=== PATIENT | female | born 1970 | race Caucasian/White ===

== ENCOUNTER 2019-05-18 08:00 | Outpatient (RCR) | payer OTHER, SELFPAY ==
--- NOTE | 2019-04-11 09:03 | HP.PTEVAL_ITS ---
Patient's Visit Information SCOTTY DEVI is a 48 year old F referred to Physical Therapy by TOM GALLARDO with a diagnosis of PLANTARFASCITIS LEFT FOOT S/P FASECTOMY. Date of Evaluation: 04/11/19 Physical Therapist: Israel Sprague, PT, Cert MDT, [facility] - Visit Plan Frequency: 2x /Week Duration: 4 Weeks Plan: PT INTERVENTIONS TO INCLUDED MOALITIES -US/CP,STRECTHING PLANTARFASCIA/GASTROSOLUES, MANUAL THERAPY PLANTARFASCIA/CALF-STM/HAWK.STICK ,STRENGTHENING EX'S MICKY ANKLE -ARCH - Subjective Findings: This 48 y/o female presents to physical therapy with plantar fascitis left foot s/p fasectomy. Patient has had left plantarfscaitis 3 years ago tried PT helped . But then last year February 2018 symptoms flared up symptoms became worse . Patient tried PT didn'd help. Thus underwent s/p left fascetomy on 12/22/18. P atient was in boot for 6weeks . Then smptoms did not get better thus DR recommended PT. In past ,patient has custom ortthotics ,shoe wear ,stretching,night splint. In past ,patient has tried injections.Symptoms worse with walking standing,walking affects job demnads and housework tasks. Symptoms described as burning tingling sensation. Location of symptoms located plantarfascia and calcaneusd. Patient condition affects QOL and function. SOCAIL: . VOCATION: Works at [employer] - Pain Left Foot Pain Intensity (Out of 10): 7 Pain Intensity Range: 10 - Objective POSTURE: frontal plane mechanics pes planus. GAIT: pes planus calaneal valgus ankle antalgic. NEURO: intact. AROM: dorsiflexion 10 degrees,plantarflexion 65 degrees,inversion 35 degres,eversion 10 degrees. MMT: DF4/5,EVERSION/INVERSION 4/5,G-S 4-/5. FLEXABLITY: G-S WFL - Goals Goal 1:: Independant with HEP Goal Time Frame: 4-6 Weeks Goal 2:: Ambulate with normal cindy Goal Time Frame: 4-6 Weeks Goal 3:: Decrease plantarfasciapain by 50% or greater to improve function with gait. Goal Time Frame: 4-6 Weeks Goal 4:: Patient to improve job demands and housework tasks with min limioations Goal Time Frame: 4-6 Weeks Goal 5:: Patient to improve LFES score by 5-10 points or greater to improve gait Goal Time Frame: 4-6 Weeks - Rehabilitation Potential Physical Therapy Diagnosis: This patient underwent s/p fasectomy on 12/22/18 with symptoms of pain/burning,tightness in plantarfascia impairs gait and standing affcts job demands /housework tasks. Rehabilitation Potential: Good - Anticipated Interventions Patient/Client Instruction: Educate patient on: Condition, Plan of Care For the Purpose of:: To decrease pain, To increase ROM, To improve muscle performance and motor function, To improve ability to perform ADL's, To increase tolerance to activity/condition/position, To improve performance and independence with ADL's, To improve ability of physical actions for home/community/work/leisure, To improve gait and locomotor functions, To improve health of tissue, To decrease soft tissue restriction, To increase flexi bility/ROM, To reduce risk of recurrence, To prevent re-injury, To improve ability to perform tasks related to life management Therapeutic Exercise to Include: Strength training, Flexibilty training, Active ROM Comment: PLANTARFASCIA/G-S For the Purpose of:: To decrease pain, To increase ROM, To improve nutrient delivery to tissue, To increase oxygenation perfusion, To improve muscle performance and motor function, To improve ability to perform ADL's, To improve performance and independence with ADL's, To improve ability of physical actions for home/community/work/leisure, To improve health of tissue, To decrease soft tissue restriction, To improve ability to perform tasks related to life management Manual Therapy Techniques to Include: Mobilization, Soft tissue mobilization Comment: PLANTAR FASCIA For the Purpose of:: To decrease pain, To increase ROM, To improve nutrient delivery to tissue, To increase oxygenation perfusion, To improve health of tissue, To decrease soft tissue restriction, To increase flexibility/ROM TENS: Yes IF ES: Yes Cryotherapy (ice pack, ice massage): Yes Thermo therapy (hot pack): Yes Ultrasound (thermal/non thermal): Yes For the Purpose of:: To decrease pain, To decrease swelling/inflammation, To improve nutrient delivery to tissue, To improve health of tissue, To decrease soft tissue restriction Thank you for the opportunity to evaluate your patient. For Medicare and Medicare HMO plans, please review the plan of care and approve it. It will need to be FAXED BACK to us at [phone] for Medicare purposes. For Medicare only, by signing this I certify the plan of care. Please let me know if there are questions or concerns regarding this plan of care. Physician Signature: Date:
--- NOTE | 2019-05-18 11:30 | HP.PTDCSUM ---
HP - PT D/C Summary It has been my pleasure to treat SCOTTY DEVI under orders from TOM GALLARDO, for the diagnosis of PLANTARFASCITIS LEFT FOOT S/P FASECTOMY for a total of 8 visit(s). Discharge Date: 05/18/19 Please see the following information for a summary of their discharge status. - Subjective Subjective: Patient was on vacation foot was feeling better. But with RTW standing not much better. Patient stated pain is better in morning but worse as day goes on . - Pain Left Foot Pain Intensity (Out of 10): 3 - Overall Improvement % Improvement: 50 - Objective Objective/Function: POSTURE: pes planus. AROM: DF 5 degrees,PF 65 degrees,IN 35 degrees,eversion 5 degrees. MMT: ankle DF/PF/EV/IN 4/5. GAIT: NORMAL NEGRA. PALPATION: TENDER INSERTION OF PLANTERFASCIA - Goals Goal 1:: Independant with HEP Goal Progress: Goal Met Goal 2:: Ambulate with normal negra Goal Progress: Progressing Goal 3:: Decrease plantarfasciapain by 50% or greater to improve function with gait. Goal Progress: Progressing Goal 4:: Patient to improve job demands and housework tasks with min limioations Goal Progress: Progressing Goal 5:: Patient to improve LFES score by 5-10 points or greater to improve gait Goal Progress: Progressing - Plan Plan: D/C -RTD - D/C Information Discharge Comments: RTD If there are questions or concerns regarding this patient's physical therapy, please feel free to call me at [phone]. Thank you for the referral of this patient. Sincerely, Israel Sprague, PT, Cert MDT, [facility]
== END 2019-05-18 19:00 | disposition home or self-care (01) ==
LOC: PT 08:00
PROVIDERS: Family Provider Family Medicine; PCP Family Medicine
DX: M72.2 Plantar fascial fibromatosis (principal); Z98.890 Other specified postprocedural states
CPT/HCPCS: 97035; 97110; 97140; 97161

== ENCOUNTER → 2021-05-15 10:50 | Outpatient (CLI) | payer OTHER, SELFPAY ==
--- NOTE | 2021-05-15 10:56 | VDLE_ITS ---
Reason For Study: VENOUS INSUFFICIENCY RIGHT LEFT CFV is compressible, spontaneous, phasic, CFV is compressible, spontaneous, phasic, competent and demonstrates normal competent, and demonstrates normal augmentation. augmentation. FV is compressible, spontaneous, phasic, FV is compressible, spontaneous, phasic, competent and demonstrates normal competent and demonstrates normal augmentation. augmentation. POP V is compressible, spontaneous, phasic, POP V is compressible, spontaneous, phasic, competent and demonstrates normal competent and demonstrates normal augmentation. augmentation. T/P Trunk is compressible. T/P Trunk is compressible. PTV is compressible. PTV is compressible. RT PerV is compressible. LT PerV is compressible. SFJ is INCOMPETENT and measures .59 X .65 cm. SFJ is competent and measures .63 x .71 cm. GSV above knee is INCOMPETENT for greater GSV at knee measures .23 x .25 cm. than 0.5 seconds. GSV above knee is INCOMPETENT for greater GSV below knee is competent. than 0.5 seconds. RT GSV is labeled Left GSV on images. GSV below knee is INCOMPETENT for greater SSV at junction is competent and measures .24 than 0.5 seconds. x .27 cm. Left GSV is labeled as RT on images. Procedure SSV at junction is competent and measures .24 This is a venous duplex using B-mode, color x .27 cm. flow and spectral Doppler. Exam performed in department. VL/Venous Duplex US - Obed Extrem Interpretation Summary Deep veins of the lower extremities are bilaterally patent and compressible seg mentally. There is no evidence of deep vein thrombosis on either side. Valvular competence appears in tact within the proximal deep venous systems bilaterally. The great saphenous veins appear bila terally patent and compressible segmentally. The right sapheno-femoral junction is incompetent . T he left sapheno- femoral junction is competent . The right great saphenous vein appears incompet ent above the knee. The right great saphenous vein appears competent below the knee. The left great saphenous vein appears segmentally incompetent. Small saphenous veins are patent and competent bilaterally. Ordering Physician: Marlon Moreno Referring Physician: MARTIN CAMPO Performed By: Vickie GALDAMEZ RVT, Carrie and Student
== END ==
PROVIDERS: PCP Family Medicine; Referring Provider Podiatrist; Visit Provider Podiatrist
DX: M79.662 Pain in left lower leg (principal); M79.661 Pain in right lower leg; I87.2 Venous insufficiency (chronic) (peripheral)
CPT/HCPCS: 93970

== ENCOUNTER → 2021-07-31 08:54 | Outpatient (CLI) | payer OTHER, SELFPAY ==
[2021-07-31 10:08] LABS: Erythrocyte Sedimentation Rate 5 mm/hr (0-30)
[2021-07-31 10:21] LABS: Vitamin B12 416 pg/mL (211-911); Vitamin D,25 Hydroxy 27.1 ng/mL
[2021-07-31 10:23] LABS: ALB/GLOB Ratio 1.1 RATIO (0.9-2.4); AST(SGOT) 16 U/L (15-37); Alanine Aminotransfer ALT/SGPT 22 U/L (13-56); Albumin, Serum 3.7 g/dL (3.2-5.0); Alkaline Phosphatase 97 U/L (45-117); Anion Gap 5 (5-15); BUN 13 mg/dL (7-18); BUN/Creat Ratio 17.5 RATIO (10-20); CRP 8.22 mg/L (0.0-3.0); Calcium,Total 9.3 mg/dL (8.5-10.1); Chloride 108 mmol/L (98-107); Creatinine, Serum 0.74 mg/dL (0.55-1.02); EST Glomerular Filtration Rate 87 mL/min (>60); Est Glom Filt Rate - Afr Amer 106 mL/min (>60); Globulin 3.4 g/dL (2.2-4.2); Glucose 99 mg/dL (74-106); Potassium 3.9 mmol/L (3.5-5.1); Protein, Total 7.1 g/dL (6.4-8.2); Rheumatoid Factor < 10.0 IU/mL (<15); Sodium Level 142 mmol/L (136-145); Uric Acid 4.7 mg/dL (2.6-6.0)
[2021-08-01 21:10] LABS: ANTINUCLEAR ANTIBODIES DIRECT Positive (Negative)
[2021-08-04 00:41] LABS: CCP IgG Antibodies 4 units (0-19)
== END ==
PROVIDERS: PCP Family Medicine; Referring Provider Podiatrist; Visit Provider Podiatrist
DX: M13.872 Other specified arthritis, left ankle and foot (principal)
CPT/HCPCS: 36415; 80053; 82306; 82607; 84550; 85652; 86038; 86140; 86200; 86431

== ENCOUNTER → 2021-08-31 11:49 | Outpatient (CLI) | payer OTHER, SELFPAY ==
--- NOTE | 2021-08-31 13:58 | NEURO ---
NCS and/or EMG Patient Report Ordering Doctor: Marlon Moreno DATE OF SERVICE: 08/31/21 Indication: Multifocal pain involving both ankles, plantar surfaces, posterior knees. Radiating pain from the left foot to the buttock. Independent radiating pain from the lumbar spine to the leg. Evaluate for tarsal tunnel syndrome. Findings: Nerve conduction studies were performed in the right and left lower extremity. The right peroneal motor study recording the extensor digitorum brevis showed a normal amplitude, normal distal latency and normal conduction velocity. No conduction block or focal slowing was present across the fibular neck. The right tibial motor study recording the abductor hallucis brevis showed a normal amplitude, normal distal latency and normal conduction velocity. Right sural sensory response showed a normal amplitude and conduction velocity. Right superficial peroneal sensory response showed a normal amplitude and conduction velocity. Right medial plantar sensory response showed a normal amplitude and conduction velocity. The left peroneal motor study recording the extensor digitorum brevis showed a normal amplitude, normal distal latency and normal conduction velocity. No conduction block or focal slowing was present across the fibular neck. The left tibial motor study recording the abductor hallucis brevis showed a normal amplitude, normal distal latency and normal conduction velocity. Left sural sensory response showed a normal amplitude and conduction velocity. Left superficial peroneal sensory response showed a normal amplitude and conduction velocity. Left medial plantar sensory response showed a normal amplitude and conduction velocity. Needle EMG of the left lower extremity and lumbar paraspinal muscles was performed. The intrinsic foot muscles were not sampled due to the common presence of denervation and reinnervation in normal subjects. No denervation was present in any muscle. All motor unit morphology, activation and recruitment patterns were normal. Needle EMG of the left lower extremity muscles was not performed due to the paucity of findings in the more symptomatic limb. Impression: This is a normal study. There is no electrophysiologic evidence of nerve entrapment or generalized peripheral neuropathy in either the right or left lower extremity. Specifically, there was no prolongation of tibial motor latencies across the ankle to suggest focal demyelination. Lastly, there is no electrophysiologic evidence lumbosacral radiculopathy in the left lower extremity. If tarsal tunnel remains of high suspicion clinically, a neuromuscular ultrasound of the tibial nerve could be considered. Cristino Toledo D.O. Multi Select Codes Neurology Neurology Interp Codes: 66782-81 Musc test done w/n test comp (interp) and 06403-28 Nrv cndj test 9-10 studies (interp)
== END ==
PROVIDERS: PCP Family Medicine; Referring Provider Podiatrist; Visit Provider Podiatrist
DX: G57.53 Tarsal tunnel syndrome, bilateral lower limbs (principal)
CPT/HCPCS: 95886; 95911

== ENCOUNTER → 2021-09-07 08:20 | Outpatient (CLI) | payer OTHER, SELFPAY ==
[2021-09-07 09:45] LABS: Homocysteine 8.9 umol/L (3.2-10.7)
[2021-09-07 09:50] LABS: Absolute Lymphocyte Count 1.47 X10^3/uL (0.83-4.51); Absolute Neutrophil Count 2.6 X10^3/uL (2.0-7.7); Basophil# 0.06 X10^3/uL; Basophil% 1.3 % (0-1); Eosinophil# 0.17 X10^3/uL; Eosinophils% 3.7 % (0-5); Hemoglobin 13.5 g/dL (12.0-15.0); Lymphocyte # 1.47 X10^3/ul (0.83-4.51); Lymphocyte % 31.9 % (19-41); Mean Corp Hgb Conc 33.8 g/dL (32-36); Mean Corpuscular Hgb 30.2 pg (27.0-32.0); Mean Corpuscular Volume 89.5 fL (81-99); Mean Platelet Vol. 10.5 fl (6.2-12.0); Monocyte# 0.31 X10^3/uL; Monocyte% 6.7 % (0-10); NRBC Flagged by Analyzer 0 % (0-5); Neutrophil # 2.59 X10^3/uL (2.7-7.7); Neutrophil % 56.2 % (47-70); Platelet Count 280 K/mm3 (150-450); RBC Distribution Width CV 11.8 % (11.6-14.6); RBC Distribution Width SD 38.3 fl (35.1-43.9); Red Blood Count 4.47 M/mm3 (4.2-5.4); White Blood Count 4.6 K/mm3 (4.4-11.0)
[2021-09-07 09:53] LABS: Erythrocyte Sedimentation Rate 12 mm/hr (0-30)
[2021-09-07 10:08] LABS: Fibrinogen 404 mg/dl (203-444)
[2021-09-07 10:31] LABS: Insulin 7.2 mU/L (2.6-37.6); Progesterone Level 0.29 ng/mL (See Comment); T3 Total - Triiodothyronine 1.23 ng/mL (0.6-1.81); Vitamin B12 422 pg/mL (211-911)
[2021-09-07 11:15] LABS: ALB/GLOB Ratio 1.1 RATIO (0.9-2.4); AST(SGOT) 18 U/L (15-37); Alanine Aminotransfer ALT/SGPT 20 U/L (13-56); Albumin, Serum 3.6 g/dL (3.2-5.0); Alkaline Phosphatase 97 U/L (45-117); Anion Gap 4 (5-15); BUN 15 mg/dL (7-18); BUN/Creat Ratio 19.5 RATIO (10-20); CPK Total, Creatine Kinase 59 U/L (26-192); CRP 5.47 mg/L (0.0-3.0); Calcium,Total 9.4 mg/dL (8.5-10.1); Chloride 109 mmol/L (98-107); Cholesterol 223 mg/dL (200); Creatinine, Serum 0.77 mg/dL (0.55-1.02); EST Glomerular Filtration Rate 83 mL/min (>60); Est Glom Filt Rate - Afr Amer 101 mL/min (>60); Estradiol 64.7 pg/mL; Ferritin 30 ng/mL (8-252); Follicle Stimulating Hormone 87.3 mIU/mL; Globulin 3.4 g/dL (2.2-4.2); Glucose 91 mg/dL (74-106); High Density Lipoprotein 52 mg/dL; Iron 103 ug/dL (50-170); Iron Binding Capacity,Total 303 ug/dL (250-450); LDH 232 U/L (84-246); Luteinizing Hormone 48.7 mIU/mL; Potassium 3.6 mmol/L (3.5-5.1); Sodium Level 140 mmol/L (136-145); T4 Free Direct 1.07 ng/dL (0.76-1.46); Thyroid Stim Hormone (TSH) 1.29 uIU/mL (0.358-3.74); Triglycerides 78 mg/dL; Very Low Density Lipoprotein 16 mg/dL (5-40)
[2021-09-08 16:25] LABS: ANTINUCLEAR ANTIBODIES DIRECT Positive (Negative)
[2021-09-14 17:07] LABS: DHEA Sulfate 92.3 ug/dL (41.2-243.7); Testosterone, % Free 2.57 % (0.50-2.80); Testosterone, Free 1.18 ng/dL (0.10-0.85); Testosterone, Total 46 ng/dL (4-50); Thyroid Peroxidase AB < 8 IU/mL (0-34)
[2021-09-15 12:07] LABS: Anti-Thyroglobulin AB < 1.0 IU/mL (0.0-0.9); Lead, Blood Adult 16+yrs < 1 ug/dL (0-4); Mercury, Blood 85324 < 1.0 ug/L (0.0-14.9); T3 Reverse 19.8 ng/dL (9.2-24.1); Thyroglobulin, Serum Qt. 14.4 ng/mL (1.5-38.5)
== END ==
LOC: MTLAB 09-03 09:55 → LAB 08:20
PROVIDERS: PCP Family Medicine
DX: E55.9 Vitamin D deficiency, unspecified (principal); R53.81 Other malaise; R53.83 Other fatigue; E53.8 Deficiency of other specified B group vitamins; E63.8 Other specified nutritional deficiencies; E61.1 Iron deficiency; R79.89 Other specified abnormal findings of blood chemistry; E78.5 Hyperlipidemia, unspecified; R73.09 Other abnormal glucose; E72.11 Homocystinuria; M25.50 Pain in unspecified joint; N95.1 Menopausal and female climacteric states; R70.0 Elevated erythrocyte sedimentation rate; M79.7 Fibromyalgia
CPT/HCPCS: 36415; 80053; 80061; 82306; 82533; 82550; 82607; 82627; 82670; 82728; 82746; 83001; 83002; 83036; 83090; 83525; 83540; 83550; 83615; 83655; 83825; 84144; 84270; 84402; 84403; 84432; 84439; 84443; 84480; 84481; 84482; 85025; 85384; 85652; 86038; 86140; 86376; 86800; 82626

== ENCOUNTER 2021-11-11 09:23 | Outpatient (CLI) | payer OTHER, SELFPAY ==
[2021-11-11 12:19] LABS: Color, Urine Yellow (Yellow); Glucose, Dipstick Normal (Normal); Ketone-Dipstick 15 mg/dl (Negative); Leukocyte Esterase-Dipstick Negative /ul (Negative); Nitrite-Dipstick Negative (Negative); Occult Blood-Urine Negative /ul (Negative); Protein-Dipstick Negative (Negative); Specific Gravity, Urine 1.015 (1.002-1.030); Urine Bilirubin Dipstick Negative (Negative); Urine Clarity Clear (Clear); Urine Urobilinogen Normal (Normal)
== END 2021-11-11 23:59 | disposition short-term general hospital (02) ==
LOC: MTLAB 09:25
PROVIDERS: PCP Family Medicine; Referring Provider Internal Medicine Rheumatology; Visit Provider Internal Medicine Rheumatology
DX: M79.18 Myalgia, other site (principal)
CPT/HCPCS: 81002